=== PATIENT | female | born 1970 | race Caucasian/White ===

== ENCOUNTER → 2019-05-29 11:24 | Outpatient (CLI) | payer OTHER, MEDICAID, SELFPAY ==
--- NOTE | 2019-05-29 11:27 | DI.US.S_ITS ---
PROCEDURE: US PELVIC COMPLETE INDICATIONS: UTERINE CRAMPING Additional history: LMP 03/27/2019. No control pills. . TECHNIQUE: Real-time scanning was performed of the pelvic organs, with image documentation. Additional endovaginal scanning was necessary due to incomplete visualization of the adnexal and endometrial structures by transabdominal scanning. COMPARISON: None. FINDINGS: Transabdominal scanning: Limited scanning through the kidneys shows no hydronephrosis. No pathologic free abdominal or pelvic fluid. Endovaginal scanning: Uterus: Uterus is normal in size at 11.5 x 5.8 x 5.5 cm. A few small uterine fibroids. Right anterior intramural measuring 1.2 x 1.3 x 1.1 cm. Right anterior intramural measuring 1.1 x 0.8 x 1 cm. The endometrium measures 12 mm in combined thickness. Small cervical nabothian cysts. Ovaries: Suboptimally visualized. Only seen transabdominally. Right ovary measures 3 x 2.2 x 2.1 cm. Dominant right ovarian follicle measuring 1.5 cm. Left ovary measures 2.9 x 3.6 x 3.1 cm. Simple left ovarian cyst measuring 2.7 x 2.6 x 2.6 cm. Small collapsed corpus luteum measuring 1.4 x 1.3 x 0.8 cm. MPRESSION: 1. Ovaries are suboptimally visualized transabdominally. However, ovaries appear within normal limits with a suspected small collapsed left ovarian corpus luteum and small follicles. 2. Small intramural fibroids. 3. Endometrial thickness is within normal limits. Dictated by: Josh Guzman M.D. on 05/29/2019 at 15:52 Approved by: Josh Guzman M.D. on 05/29/2019 at 15:59
== END ==
PROVIDERS: Visit Provider Nurse Practitioner
DX: N94.89 Other specified conditions associated with female genital organs and menstrual cycle (principal); D25.1 Intramural leiomyoma of uterus; N88.8 Other specified noninflammatory disorders of cervix uteri; N83.292 Other ovarian cyst, left side
CPT/HCPCS: 76830; 76856

== ENCOUNTER → 2021-12-31 11:41 | Outpatient (CLI) | payer OTHER, MEDICAID, SELFPAY ==
[2021-12-31 12:37] LABS: Add Manual Diff / Slide Review NO; Basophils Absolute Auto 0 /uL (0-100); Basophils Percent Auto 0.8 % (0-2); Eosinophils Absolute Auto 100 /uL (0-450); Eosinophils Percent Auto 1.5 % (2-4); Hemoglobin 13.1 g/dL (12.0-16.0); Lymphocytes Absolute Auto 1900 /uL (1100-4500); Mean Corpuscular HGB Conc 34.6 % (30-36); Mean Corpuscular Hemoglobin 30.4 PG (26-34); Mean Corpuscular Volume 87.9 fL (80-100); Monocytes Absolute Auto 400 /uL (0-900); Monocytes Percent Auto 6.7 % (3-14); Neutrophils Absolute Auto 3800 /uL (1500-7000); Platelet Count 349 X10^3/uL (150-400); Red Blood Cell Count 4.32 X10^6/uL (4.0-5.2); Red Cell Distribution Width 13.1 % (11.6-14.8); White Blood Cell Count 6.2 X10^3/uL (4.5-11.0)
[2021-12-31 12:48] LABS: Hemoglobin A1C% w Est Avg Glu 5.5 % (4.0-6.0)
[2021-12-31 12:57] LABS: Erythrocyte Sedimentation Rate 16 MM/HR (0-20)
[2021-12-31 13:17] LABS: Alanine Aminotransferase 22 IU/L (<35); Albumin 4.3 g/dL (3.5-5.0); Albumin Globulin Ratio 1.4 (1.0-2.8); Alkaline Phosphatase 62 U/L (38-126); Aspartate Aminotransferase 24 IU/L (14-36); BUN Creatinine Ratio 18.6 (6-22); Bilirubin Total 0.2 mg/dL (0.2-1.3); Blood Urea Nitrogen 18 mg/dL (7-17); Calcium 8.9 mg/dL (8.4-10.2); Carbon Dioxide 27 mmol/L (22-32); Chloride 103 mmol/L (98-107); Estimated Glomerular Filt Rate > 60 mL/min (>60); Globulin 3.1 g/dL (1.7-4.1); Glucose 92 mg/dL (70-100); HEMOLYSIS < 15 (0-50); Potassium 4.6 mmol/L (3.4-5.1); Sodium 137 mmol/L (137-145); Total Protein 7.4 g/dL (6.3-8.2)
[2021-12-31 13:39] LABS: Rheumatoid Factor < 8.6 IU/mL (<12.0)
[2021-12-31 14:24] LABS: Vitamin B12 380 pg/mL (239-931)
[2022-01-04 01:27] LABS: CCP Antibodies IgG/IgA 2 units (0-19)
[2022-01-04 17:20] LABS: ANA Screen, IFA Positive (.)
== END ==
PROVIDERS: PCP Family Medicine; Referring Provider Family Medicine; Visit Provider Family Medicine
DX: F41.9 Anxiety disorder, unspecified (principal); G62.9 Polyneuropathy, unspecified; M25.50 Pain in unspecified joint; M54.50 Low back pain, unspecified
CPT/HCPCS: 36415; 80053; 82607; 83036; 85025; 85651; 86038; 86200; 86430

== ENCOUNTER → 2021-12-31 12:09 | Outpatient (CLI) | payer OTHER, MEDICAID, SELFPAY ==
--- NOTE | 2021-12-31 12:14 | DI.RAD.S_ITS ---
PROCEDURE: XR LUMBAR SPINE 2-3V INDICATIONS: Numbness TECHNIQUE: 3 views of the lumbar spine were acquired. COMPARISON: None. FINDINGS: Bones: 5 [id number] vertebrae are present. There is normal bony alignment. No vertebral body compression fractures. No suspicious bony lesions. Multilevel disc space narrowing and endplate osteophyte formation, worst at L4-L5, indicating degenerative disc disease. Facet hypertrophy throughout the mid and lower lumbar spine. Soft tissues: Overlying bowel gas pattern is normal. No suspicious soft tissue calcifications. IMPRESSION: 1. Multilevel degenerative disc and facet disease. 2. No acute fracture. No osseous lesion. If symptoms and/or clinical suspicion for pathology persist, further assessment with repeat, or advanced imaging (e.g., CT, MRI, or bone scan) may be helpful for further assessment. Dictated by: Arin Chester M.D. on 12/31/2021 at 13:52 Transcribed by: SUZANNE on 12/31/2021 at 13:53 Approved by: Arin Chester M.D. on 12/31/2021 at 15:37
== END ==
PROVIDERS: PCP Family Medicine; Referring Provider Family Medicine; Visit Provider Family Medicine
DX: M51.36 Other intervertebral disc degeneration, lumbar region (principal); M54.50 Low back pain, unspecified; R20.0 Anesthesia of skin; F41.9 Anxiety disorder, unspecified; M25.50 Pain in unspecified joint; G62.9 Polyneuropathy, unspecified
CPT/HCPCS: 36415; 72100; 80053; 82607; 83036; 85025; 85651; 86038; 86200; 86430

== ENCOUNTER → 2022-02-16 19:08 | Outpatient (CLI) | payer OTHER, MEDICAID, SELFPAY ==
--- NOTE | 2022-02-16 19:12 | DI.MRI.S_ITS ---
PROCEDURE: MR HEAD/BRAIN WO CON INDICATIONS: Progressive neuropathy symptoms ataxia TECHNIQUE: Non-contrast axial T1 spin echo, axial T2 fast spin echo, sagittal and axial FLAIR, coronal T2 fast spin echo, axial gradient echo, axial diffusion and ADC through the brain. COMPARISON: None. FINDINGS: There are numerous FLAIR/T2 hyperintense signal abnormalities in the subcortical, deep, and periventricular white matter both cerebral hemispheres. There are also few signal abnormalities directly the involving the corpus callosum. No definite infratentorial signal abnormality identified. The morphology and distribution of the lesions is consistent with demyelinating process such as multiple sclerosis. No lesion identified involving the optic nerves or optic chiasm. Mild global cerebral volume loss. No restricted diffusion. No unexpected intracranial susceptibility. The major intracranial vascular flow-related signal voids are maintained. No significant orbital abnormality. Paranasal sinuses and mastoid air cells are predominantly clear. IMPRESSION: Multiple supratentorial white matter signal abnormalities consistent with demyelinating disorder such as multiple sclerosis. Dictated by: Frank Skelton M.D. on 02/17/2022 at 9:00 Approved by: Frank Skelton M.D. on 02/17/2022 at 9:02
== END ==
PROVIDERS: PCP Family Medicine; Referring Provider Family Medicine; Visit Provider Family Medicine
DX: G62.9 Polyneuropathy, unspecified (principal); R90.82 White matter disease, unspecified; Z82.0 Family history of epilepsy and other diseases of the nervous system
CPT/HCPCS: 70551

== ENCOUNTER → 2023-06-15 08:59 | Day surgery (SDC) | payer OTHER, MEDICAID, SELFPAY ==
[2023-06-15] MEDS: LACTATED RINGERS 1,000 ML 42 ML IV (09:29)
[2023-06-15 09:36] VITALS: BMI 36.8
[2023-06-15 09:47] VITALS: BP 153/83; PULSE 85; RESP 19; TEMP 36.3; O2SAT 94
[2023-06-15 10:19] LABS: COVID19 -Nasal RAPID Negative (Negative)
--- NOTE | 2023-06-15 11:44 | SUR.PREOP ---
Patient procedure cancelled.
== END ==
PROVIDERS: PCP Family Medicine; Referring Provider Surgery; Visit Provider Surgery
DX: Z53.09 Procedure and treatment not carried out because of other contraindication (principal); Z11.52 Encounter for screening for COVID-19
CPT/HCPCS: 87635